=== PATIENT | female | born 1990 | race Caucasian/White ===

== ENCOUNTER → 2017-10-31 14:03 | Outpatient (CLI) | payer MEDICAID | END | disposition home or self-care (01) | LOC: D.US 14:03 | DX: N63.0 Unspecified lump in unspecified breast (principal) ==

== ENCOUNTER 2018-06-13 23:43 | Emergency (ER) | payer MEDICAID ==
[~2018-06-13] VITALS: Ht 162.6 cm; Wt 59.1 kg
[2018-06-14 00:05] VITALS: Ht 162.6 cm; Wt 59.1 kg
[2018-06-14] MEDS ORDERED: DEPO SHOT (00:08)
[2018-06-14 00:56] LABS: BASOPHILS 0.1 % (0-2); EOSINOPHILS 0.2 % (0-7); HEMATOCRIT 40.4 % (36.0-48.0); HEMOGLOBIN 14.3 g/dL (12-16); IMMATURE GRANULOCYTES 0.3 % (0-5); MCH 31.3 pg (26.0-34.0); MCHC 35.4 g/dL (31.0-37.0); MCV 88.4 fL (80.0-100.0); MEAN PLATELET VOLUME 10.4 fL (7.4-10.4); MONOCYTES 6.7 % (2-11); NEUTROPHILS 75.7 % (40-80); PLATELET COUNT 229 10x3/uL (130-400); RBC 4.57 10x6/uL (4.00-5.40); RDW 12.8 % (11.5-14.5); WBC 10.4 10x3/uL (4.8-10.8)
[2018-06-14 01:01] LABS: APPEARANCE CLEAR (CLEAR); BILIRUBIN NEGATIVE (NEGATIVE); COLOR YELLOW (YELLOW); GLUCOSE NEGATIVE (NEGATIVE); KETONE NEGATIVE (NEGATIVE); NITRITE NEGATIVE (NEGATIVE); PROTEIN NEGATIVE (NEGATIVE); SPECIFIC GRAVITY 1.005 (1.005-1.020); UROBILINOGEN NORMAL (NORMAL)
[2018-06-14 01:04] LABS: APTT 21.8 SECONDS (22.8-39.4); INR 0.95 (0.85-1.17); PROTIME 12.3 SECONDS (11.6-15.0)
[2018-06-14 01:06] LABS: ALBUMIN 4.1 g/dL (3.4-5.0); ALKALINE PHOSPHATASE 82 U/L (46-116); ALT (SGPT) 29 U/L (10-68); BILIRUBIN - TOTAL 0.11 mg/dL (0.2-1.3); CALC OSMOLALITY 284 mosm/kg (275-300); CALCIUM 9.2 mg/dL (8.5-10.1); CARBON DIOXIDE 24.5 mmol/L (21.0-32.0); CHLORIDE - SERUM 105 mmol/L (98-107); CREATININE - SERUM 0.7 mg/dL (0.6-1.3); GLUCOSE 112 mg/dL (74-106); POTASSIUM - SERUM 3.9 mmol/L (3.5-5.1); PROTEIN - SERUM 7.7 g/dL (6.4-8.2); SODIUM 143 mmol/L (136-145); UREA NITROGEN 9 mg/dL (7-18); eGFR NON AFRICAN AMERICAN > 90 mL/min (90-120)
[2018-06-14] MEDS ORDERED: ACETAMINOPHEN500 M1 PO (02:03)
[2018-06-14] MEDS ORDERED: IBUPROFEN800 MG PO (02:03)
[2018-06-14] MEDS ORDERED: CYCLOBENZAPRINE10 MG PO (02:03)
[2018-06-14 02:27] VITALS: BP 125/81
== END 2018-06-14 02:28 | disposition home or self-care (01) ==
LOC: D.ER 23:43
PROVIDERS: Family Medicine
DX: R51 Headache (principal); M54.2 Cervicalgia; S01.01XA Laceration without foreign body of scalp, initial encounter; V86.59XA Driver of other special all-terrain or other off-road motor vehicle injured in nontraffic accident, initial encounter; Y93.89 Activity, other specified; Y92.89 Other specified places as the place of occurrence of the external cause; F17.200 Nicotine dependence, unspecified, uncomplicated